=== PATIENT | male | born 1930 | race Caucasian/White ===

== ENCOUNTER 2017-02-14 12:20 | Observation (INO) | payer MEDICARE, OTHER ==
[~2017-02-14] VITALS: Ht 172.7 cm; Wt 81.1 kg
[~2017-02-14 12:20] MED LIST: ASPIRIN 32325 MG/TAB PO; ASPIRIN E.C. 8181 MG PO; CLOPIDOGREL; GENTEAL 0.25%-025 ML OP; LIPITOR 10MG10 MG PO; OPTIVE 0.5%-0.915 ML OP; PLAVIX 75MG TAB75 MG PO; PRILOSEC 20MG20 MG PO; PROTONIX20 MG PO; [UNRECOGNIZED DRUG - REMARK] PO
[2017-02-14 12:48] LABS: BASO % 0.5 % (0.0-2.0); EOS # 0.5 (0.0-0.7); EOS % 6.8 % (0-4.0); GRAN % 63.7 % (42.2-75.2); HEMATOCRIT 47.7 % (42.0-52.0); HEMOGLOBIN 16.1 g/dl (13.5-18.0); LYMPH # 1.5 (1.2-3.4); LYMPH % 19.2 % (20.0-51.0); MEAN CELL VOLUME 105 fl (80.0-100.0); MEAN CORPUSCULAR HEMOGLOBIN 35 pg (27.0-31.0); MEAN CORPUSCULAR HGB CONC 34 g/dl (33.0-37.0); MEAN PLATELET VOLUME 8.8 fl (7.4-10.4); MONO # 0.7 (0.1-0.6); MONO % 9.5 % (1.7-9.3); PLATELET COUNT 178 K/mm3 (130-400); RED BLOOD COUNT 4.55 M/mm3 (4.20-5.60); REDCELL DISTRIBUTION WIDTH-CV 12.7 % (11.5-14.5); WHITE BLOOD COUNT 7.8 K/mm3 (4.8-10.8)
[2017-02-14 12:50] LABS: INR 1.1 (0.8-3.0)
[2017-02-14 13:12] LABS: ADJUSTED CALCIUM 9.1 mg/dL (8.4-10.2); ALBUMIN 4.3 gm/dL (3.5-5.0); CALCIUM 9.3 mg/dL (8.4-10.2); CREATININE, serum 0.88 mg/dL (0.66-1.25); POTASSIUM 4.2 mmol/L (3.4-5.0); TOTAL PROTEIN 7.3 gm/dL (6.4-8.2)
[2017-02-14 14:36] LABS: PH 7 (5-8); SQUAMOUS EPITHELIAL None Seen /hpf; URINE APPEARANCE Hazy; URINE BACTERIA None Seen /hpf; URINE BILIRUBIN Negative (NEGATIVE); URINE BLOOD Negative (NEGATIVE); URINE COLOR Yellow; URINE GLUCOSE Negative (NEGATIVE); URINE KETONE Negative (NEGATIVE); URINE RBC 0-2 /hpf; URINE UROBILINOGEN Negative (NEGATIVE); URINE WBC 0-2 /hpf
[2017-02-14] MEDS ORDERED: EYE DROP TEARS15 ML OP (15:15)
[2017-02-14 15:32] VITALS: BP 164/60; PULSE 58; TEMP 97.9
[2017-02-14 15:33] VITALS: BP 164/60; PULSE 58; TEMP 97.9
[2017-02-14] MEDS ORDERED: FOLIC ACID0.4 MG PO (16:00)
[2017-02-14] MEDS ORDERED: B-121000 MCG PO (16:01)
[2017-02-14 19:46] VITALS: BP 157/98; PULSE 64; TEMP 98.7
[2017-02-14 23:59] VITALS: BP 158/60; PULSE 62; TEMP 97.4
[2017-02-15 03:08] VITALS: BP 133/50; PULSE 57; TEMP 98.4
[2017-02-15 06:43] LABS: BASO % 0.4 % (0.0-2.0); EOS # 0.7 (0.0-0.7); EOS % 9.6 % (0-4.0); GRAN # 4.2 (1.4-6.5); GRAN % 59.4 % (42.2-75.2); HEMATOCRIT 42.9 % (42.0-52.0); HEMOGLOBIN 14.9 g/dl (13.5-18.0); LYMPH # 1.5 (1.2-3.4); LYMPH % 20.7 % (20.0-51.0); MEAN CELL VOLUME 104 fl (80.0-100.0); MEAN CORPUSCULAR HEMOGLOBIN 36 pg (27.0-31.0); MEAN CORPUSCULAR HGB CONC 35 g/dl (33.0-37.0); MEAN PLATELET VOLUME 8.6 fl (7.4-10.4); MONO # 0.7 (0.1-0.6); MONO % 9.6 % (1.7-9.3); PLATELET COUNT 157 K/mm3 (130-400); RED BLOOD COUNT 4.13 M/mm3 (4.20-5.60); REDCELL DISTRIBUTION WIDTH-CV 12.5 % (11.5-14.5)
[2017-02-15 06:59] LABS: CALCIUM 8.7 mg/dL (8.4-10.2); CREATININE, serum 0.79 mg/dL (0.66-1.25); POTASSIUM 4.1 mmol/L (3.4-5.0)
[2017-02-15 07:08] LABS: MAGNESIUM 2.2 mg/dL (1.6-2.3)
[2017-02-15 07:41] LABS: THYROID STIMULATING HORMONE 3.27 uIU/mL (0.465-4.680)
[2017-02-15 08:11] VITALS: BP 121/88; PULSE 56; TEMP 97.8
[2017-02-15] MEDS ORDERED: MULTI VITAMINS1 TAB PO (11:12)
[2017-02-15 14:29] LABS: ALBUMIN FRACTION 3.4 g/dL (2.6-4.5); ALBUMIN PERCENTAGE 61.1 % (48.7-61.8); ALPHA 1 FRACTION 0.3 g/dL (0.3-0.5); ALPHA 1 PERCENTAGE 4.6 % (3.4-8.3); ALPHA 2 FRACTION 0.7 g/dL (0.6-1.2); ALPHA 2 PERCENTAGE 12.5 % (8.4-17.5); BETA 1 FRACTION 0.3 g/dL (0.4-0.6); BETA 1 PERCENTAGE 5.5 % (5.4-8.9); BETA 2 FRACTION 0.2 g/dL (0.2-0.5); BETA 2 PERCENTAGE 4.3 % (3.8-7.7); GAMMA FRACTION 0.7 g/dL (0.4-1.7); SERUM PROTEIN TOTAL 5.6 g/dL (6.0-7.6)
== END 2017-02-15 16:53 | disposition home or self-care (01) ==
LOC: COL.ER 12:20 → MEDICAL 14:52
PROVIDERS: Nurse Practitioner; Physician Assistant; Psychiatry & Neurology Neurology
DX: G45.9 Transient cerebral ischemic attack, unspecified (principal); Z86.73 Personal history of transient ischemic attack (TIA), and cerebral infarction without residual deficits; G62.9 Polyneuropathy, unspecified; K21.9 Gastro-esophageal reflux disease without esophagitis; Z85.828 Personal history of other malignant neoplasm of skin; Z96.641 Presence of right artificial hip joint; Z87.891 Personal history of nicotine dependence
CPT/HCPCS: A9585; G0378; G8978-GP; G8979-GP; G8987-GO; G8988-GO; G8999-GN; G9186-GN; J1650

== ENCOUNTER → 2017-03-17 | Outpatient (CLI) | payer MEDICARE, OTHER ==
[~2017-03-17] MED LIST changes: +B-121000 MCG PO; +EYE DROP TEARS15 ML OP; +FOLIC ACID0.4 MG PO; +MULTI VITAMINS1 TAB PO; +NORCO 325 MG-51 TAB PO; +[UNRECOGNIZED DRUG - OTHER] OP
== END ==
LOC: COL.RAD 07:40
DX: Z01.812 Encounter for preprocedural laboratory examination (principal); I65.23 Occlusion and stenosis of bilateral carotid arteries; M47.812 Spondylosis without myelopathy or radiculopathy, cervical region; M48.02 Spinal stenosis, cervical region
CPT/HCPCS: Q9967

== ENCOUNTER 2017-04-15 08:30 | Emergency (ER) | payer MEDICARE, OTHER ==
[~2017-04-15] VITALS: Ht 172.7 cm; Wt 79.5 kg
[~2017-04-15 08:30] MED LIST changes: -NORCO 325 MG-51 TAB PO; -[UNRECOGNIZED DRUG - OTHER] OP
[2017-04-15 08:35] VITALS: TEMP 98.1
[2017-04-15 09:21] LABS: BASO % 0.3 % (0.0-2.0); EOS # 0.1 (0.0-0.7); EOS % 0.7 % (0-4.0); GRAN % 79.9 % (42.2-75.2); HEMATOCRIT 38.3 % (42.0-52.0); LYMPH % 8.7 % (20.0-51.0); MEAN CELL VOLUME 104 fl (80.0-100.0); MEAN CORPUSCULAR HEMOGLOBIN 35 pg (27.0-31.0); MEAN CORPUSCULAR HGB CONC 34 g/dl (33.0-37.0); MEAN PLATELET VOLUME 9.3 fl (7.4-10.4); MONO # 1.1 (0.1-0.6); MONO % 9.9 % (1.7-9.3); PLATELET COUNT 153 K/mm3 (130-400); RED BLOOD COUNT 3.67 M/mm3 (4.20-5.60); REDCELL DISTRIBUTION WIDTH-CV 13.2 % (11.5-14.5); WHITE BLOOD COUNT 11.3 K/mm3 (4.8-10.8)
[2017-04-15 09:31] LABS: INR 1.2 (0.8-3.0); PROTHROMBIN TIME 13.4 SECONDS (9.7-12.8)
[2017-04-15 09:35] LABS: ADJUSTED CALCIUM 9.1 mg/dL (8.4-10.2); ALANINE AMINOTRANSFERASE 29 U/L (21-72); ALBUMIN 3.5 gm/dL (3.5-5.0); ALKALINE PHOSPHATASE 41 U/L (50-136); ANION GAP 7 mmol/L (7-16); BILIRUBIN,TOTAL 1.4 mg/dL (0.0-1.0); BLOOD UREA NITROGEN 19 mg/dL (9-20); CALCIUM 8.7 mg/dL (8.4-10.2); CARBON DIOXIDE 26 mmol/L (22-30); CHLORIDE 103 mmol/L (98-107); CREATININE, serum 0.85 mg/dL (0.66-1.25); GLUCOSE 93 mg/dL (74-106); POTASSIUM 3.9 mmol/L (3.4-5.0); SODIUM 136 mmol/L (137-145); TOTAL PROTEIN 6.1 gm/dL (6.4-8.2)
[2017-04-15 09:39] LABS: PARTIAL THROMBOPLASTIN TIME 31.1 SECONDS (26.0-37.0)
[2017-04-15 09:44] LABS: B-TYPE NATRIURETIC PEPTIDE 1000 pg/mL (0-450)
[2017-04-15 09:49] LABS: TROPONIN-I < 0.012 ng/mL (0.000-0.034)
[2017-04-15 10:03] LABS: C-REACTIVE PROTEIN 13.1 mg/dL (0.0-0.9)
[2017-04-15] MEDS ORDERED: NORCO 325 MG-51 TAB PO (10:13)
[2017-04-15 11:27] VITALS: BP 117/51; PULSE 61
== END 2017-04-15 11:27 | disposition home or self-care (01) ==
LOC: COL.ER 08:30
PROVIDERS: Emergency Medicine
DX: T81.718A Complication of other artery following a procedure, not elsewhere classified, initial encounter (principal); Z79.82 Long term (current) use of aspirin; Z86.73 Personal history of transient ischemic attack (TIA), and cerebral infarction without residual deficits; Z85.46 Personal history of malignant neoplasm of prostate; Z85.828 Personal history of other malignant neoplasm of skin
CPT/HCPCS: J1100

== ENCOUNTER 2017-04-28 12:41 | Emergency (ER) | payer MEDICARE, OTHER ==
[~2017-04-28] VITALS: Ht 172.7 cm; Wt 79.5 kg
[~2017-04-28 12:41] MED LIST changes: +NORCO 325 MG-51 TAB PO
[2017-04-28 12:53] VITALS: TEMP 97.5
[2017-04-28 13:10] LABS: BASO % 0.3 % (0.0-2.0); EOS # 0.5 (0.0-0.7); GRAN # 6.7 (1.4-6.5); HEMOGLOBIN 14.6 g/dl (13.5-18.0); LYMPH # 1.5 (1.2-3.4); LYMPH % 15.4 % (20.0-51.0); MEAN CELL VOLUME 102 fl (80.0-100.0); MEAN CORPUSCULAR HEMOGLOBIN 36 pg (27.0-31.0); MEAN CORPUSCULAR HGB CONC 35 g/dl (33.0-37.0); MEAN PLATELET VOLUME 8.4 fl (7.4-10.4); MONO % 9.9 % (1.7-9.3); PLATELET COUNT 214 K/mm3 (130-400); REDCELL DISTRIBUTION WIDTH-CV 12.5 % (11.5-14.5); WHITE BLOOD COUNT 9.8 K/mm3 (4.8-10.8)
[2017-04-28] MEDS ORDERED: ASPIRIN 32325 MG/TAB PO (13:18)
[2017-04-28 13:19] LABS: INR 1.1 (0.8-3.0); PROTHROMBIN TIME 12.3 SECONDS (9.7-12.8)
[2017-04-28] MEDS ORDERED: [UNRECOGNIZED DRUG - OTHER] OP (13:20)
[2017-04-28 13:22] LABS: PARTIAL THROMBOPLASTIN TIME 31.5 SECONDS (26.0-37.0)
[2017-04-28 13:29] LABS: ADJUSTED CALCIUM 9.2 mg/dL (8.4-10.2); ALANINE AMINOTRANSFERASE 24 U/L (21-72); ALBUMIN 3.8 gm/dL (3.5-5.0); ALKALINE PHOSPHATASE 53 U/L (50-136); ANION GAP 6 mmol/L (7-16); BLOOD UREA NITROGEN 13 mg/dL (9-20); CARBON DIOXIDE 23 mmol/L (22-30); CHLORIDE 102 mmol/L (98-107); CREATININE, serum 0.85 mg/dL (0.66-1.25); GLUCOSE 89 mg/dL (74-106); POTASSIUM 4.3 mmol/L (3.4-5.0); SODIUM 131 mmol/L (137-145); TOTAL PROTEIN 6.5 gm/dL (6.4-8.2)
[2017-04-28 13:40] LABS: TROPONIN-I < 0.012 ng/mL (0.000-0.034)
[2017-04-28 15:02] VITALS: BP 173/93; PULSE 65
== END 2017-04-28 15:12 | disposition short-term general hospital (02) ==
LOC: COL.ER 12:41
PROVIDERS: Emergency Medicine
DX: G45.9 Transient cerebral ischemic attack, unspecified (principal); Z79.02 Long term (current) use of antithrombotics/antiplatelets; K21.9 Gastro-esophageal reflux disease without esophagitis

== ENCOUNTER 2017-05-03 22:26 | Emergency (ER) | payer MEDICARE, OTHER ==
[~2017-05-03] VITALS: Ht 172.7 cm; Wt 72.7 kg
[~2017-05-03 22:26] MED LIST changes: +[UNRECOGNIZED DRUG - OTHER] OP
[2017-05-03 22:29] VITALS: TEMP 97
[2017-05-03 23:24] VITALS: BP 167/80; PULSE 90
== END 2017-05-03 23:26 | disposition home or self-care (01) ==
LOC: COL.ER 22:26
DX: S27.818A Other injury of esophagus (thoracic part), initial encounter (principal); R09.89 Other specified symptoms and signs involving the circulatory and respiratory systems; I25.10 Atherosclerotic heart disease of native coronary artery without angina pectoris; X58.XXXA Exposure to other specified factors, initial encounter

== ENCOUNTER 2017-09-28 01:20 | Observation (INO) | payer MEDICARE, OTHER ==
[~2017-09-28] VITALS: Ht 175.3 cm; Wt 78.0 kg
[2017-09-28] MEDS ORDERED: LIPITOR 10MG10 MG PO (01:35)
[2017-09-28] MEDS ORDERED: LIPITOR 80MG80 MG PO (01:35)
[2017-09-28 01:37] LABS: BASO # 0.1 (0.0-0.2); BASO % 0.5 % (0.0-2.0); EOS # 0.7 (0.0-0.7); EOS % 7.8 % (0-4.0); GRAN # 5.7 (1.4-6.5); GRAN % 62.9 % (42.2-75.2); HEMATOCRIT 43.9 % (42.0-52.0); LYMPH # 1.7 (1.2-3.4); LYMPH % 18.7 % (20.0-51.0); MEAN CELL VOLUME 102 fl (80.0-100.0); MEAN CORPUSCULAR HEMOGLOBIN 35 pg (27.0-31.0); MEAN CORPUSCULAR HGB CONC 34 g/dl (33.0-37.0); MONO # 0.9 (0.1-0.6); MONO % 9.6 % (1.7-9.3); PLATELET COUNT 187 K/mm3 (130-400); RED BLOOD COUNT 4.29 M/mm3 (4.20-5.60); REDCELL DISTRIBUTION WIDTH-CV 12.4 % (11.5-14.5)
[2017-09-28 01:43] LABS: INR 1.1 (0.8-3.0); PROTHROMBIN TIME 12.3 SECONDS (9.7-12.8)
[2017-09-28 01:46] LABS: ALBUMIN 4.1 gm/dL (3.5-5.0); BILIRUBIN,TOTAL 0.6 mg/dL (0.0-1.0); CALCIUM 9.5 mg/dL (8.4-10.2); CREATININE, serum 0.88 mg/dL (0.66-1.25); PARTIAL THROMBOPLASTIN TIME 32.1 SECONDS (26.0-37.0); TOTAL PROTEIN 6.9 gm/dL (6.4-8.2)
[2017-09-28 02:53] LABS: COLLECTION METHOD CLEAN CATCH
[2017-09-28 02:58] LABS: PH 7 (5-8); SQUAMOUS EPITHELIAL None Seen /hpf; URINE APPEARANCE Clear; URINE BACTERIA None Seen /hpf; URINE BILIRUBIN Negative (NEGATIVE); URINE BLOOD Negative (NEGATIVE); URINE COLOR Yellow; URINE GLUCOSE Negative (NEGATIVE); URINE KETONE Negative (NEGATIVE); URINE LEUKOCYTE ESTERASE Negative (NEGATIVE); URINE NITRATE Negative (NEGATIVE); URINE PROTEIN(semi-quant) Negative (NEGATIVE); URINE RBC 0-2 /hpf; URINE UROBILINOGEN Negative (NEGATIVE)
[2017-09-28 03:43] VITALS: BP 187/75; PULSE 83; TEMP 99.7
[2017-09-28 06:16] LABS: BASO % 0.4 % (0.0-2.0); EOS # 0.1 (0.0-0.7); EOS % 0.5 % (0-4.0); GRAN # 9.3 (1.4-6.5); HEMATOCRIT 41.1 % (42.0-52.0); HEMOGLOBIN 14.2 g/dl (13.5-18.0); LYMPH # 0.8 (1.2-3.4); LYMPH % 7.3 % (20.0-51.0); MEAN CELL VOLUME 102 fl (80.0-100.0); MEAN CORPUSCULAR HEMOGLOBIN 35 pg (27.0-31.0); MEAN CORPUSCULAR HGB CONC 35 g/dl (33.0-37.0); MONO # 0.7 (0.1-0.6); MONO % 5.9 % (1.7-9.3); PLATELET COUNT 195 K/mm3 (130-400); RED BLOOD COUNT 4.03 M/mm3 (4.20-5.60); REDCELL DISTRIBUTION WIDTH-CV 12.2 % (11.5-14.5)
[2017-09-28 06:31] LABS: ALBUMIN 4.1 gm/dL (3.5-5.0); BILIRUBIN,TOTAL 0.7 mg/dL (0.0-1.0); CALCIUM 9.4 mg/dL (8.4-10.2); CREATININE, serum 0.8 mg/dL (0.66-1.25); POTASSIUM 3.9 mmol/L (3.4-5.0); TOTAL PROTEIN 6.8 gm/dL (6.4-8.2)
[2017-09-28 07:30] VITALS: BP 164/70; PULSE 80
[2017-09-28 09:30] VITALS: BP 180/63; PULSE 77; TEMP 98.3
[2017-09-28 14:29] VITALS: BP 155/59; PULSE 67; TEMP 98.1
[2017-09-28 21:19] VITALS: BP 155/55; PULSE 62; TEMP 98.1
[2017-09-29] VITALS: BP 122/61; PULSE 55; TEMP 97.4
[2017-09-29 05:11] VITALS: BP 133/63; PULSE 60; TEMP 98.1
[2017-09-29 06:35] LABS: BASO % 0.3 % (0.0-2.0); EOS # 0.4 (0.0-0.7); EOS % 5.1 % (0-4.0); GRAN # 5.2 (1.4-6.5); GRAN % 59.8 % (42.2-75.2); HEMATOCRIT 40.2 % (42.0-52.0); HEMOGLOBIN 13.8 g/dl (13.5-18.0); LYMPH % 23.3 % (20.0-51.0); MEAN CELL VOLUME 103 fl (80.0-100.0); MEAN CORPUSCULAR HEMOGLOBIN 35 pg (27.0-31.0); MEAN CORPUSCULAR HGB CONC 34 g/dl (33.0-37.0); MEAN PLATELET VOLUME 8.8 fl (7.4-10.4); MONO % 10.9 % (1.7-9.3); PLATELET COUNT 181 K/mm3 (130-400); RED BLOOD COUNT 3.92 M/mm3 (4.20-5.60); REDCELL DISTRIBUTION WIDTH-CV 12.5 % (11.5-14.5)
[2017-09-29 06:51] LABS: CALCIUM 8.9 mg/dL (8.4-10.2); CHOLESTEROL RISK RATIO 2.6; CREATININE, serum 0.85 mg/dL (0.66-1.25); POTASSIUM 3.9 mmol/L (3.4-5.0)
[2017-09-29 08:30] VITALS: BP 147/72; PULSE 65; TEMP 97.3
[2017-09-29 12:23] VITALS: BP 131/58; PULSE 57; TEMP 97.3
[2017-09-29 17:03] VITALS: BP 139/72; PULSE 61; TEMP 97.7
[2017-09-29 19:45] VITALS: BP 131/61; PULSE 68; TEMP 97.5
[2017-09-30 00:05] VITALS: BP 168/52; PULSE 58; TEMP 98.3
[2017-09-30 02:45] VITALS: BP 140/52; PULSE 54; TEMP 98.7
[2017-09-30 07:50] LABS: BASO # 0.1 (0.0-0.2); BASO % 0.7 % (0.0-2.0); EOS # 0.6 (0.0-0.7); EOS % 7.3 % (0-4.0); GRAN # 5.2 (1.4-6.5); GRAN % 58.3 % (42.2-75.2); HEMATOCRIT 41.3 % (42.0-52.0); HEMOGLOBIN 13.9 g/dl (13.5-18.0); LYMPH # 1.9 (1.2-3.4); LYMPH % 21.2 % (20.0-51.0); MEAN CELL VOLUME 104 fl (80.0-100.0); MEAN CORPUSCULAR HEMOGLOBIN 35 pg (27.0-31.0); MEAN CORPUSCULAR HGB CONC 34 g/dl (33.0-37.0); MEAN PLATELET VOLUME 9.2 fl (7.4-10.4); MONO % 11.6 % (1.7-9.3); PLATELET COUNT 195 K/mm3 (130-400); RED BLOOD COUNT 3.98 M/mm3 (4.20-5.60); REDCELL DISTRIBUTION WIDTH-CV 12.3 % (11.5-14.5)
[2017-09-30 08:06] LABS: CALCIUM 9.1 mg/dL (8.4-10.2); CREATININE, serum 0.85 mg/dL (0.66-1.25); POTASSIUM 3.8 mmol/L (3.4-5.0)
[2017-09-30 08:21] VITALS: BP 131/57; PULSE 54; TEMP 97.8
[2017-09-30 12:55] VITALS: BP 116/61; PULSE 55; TEMP 98.4
== END 2017-09-30 13:44 | disposition home or self-care (01) ==
LOC: COL.ER 01:20 → SURG 02:56 → MEDICAL 18:30
PROVIDERS: Emergency Medicine; Internal Medicine; Nurse Practitioner Family; Physician Assistant
DX: G45.9 Transient cerebral ischemic attack, unspecified (principal); I10 Essential (primary) hypertension; M19.90 Unspecified osteoarthritis, unspecified site; Z96.641 Presence of right artificial hip joint; Z79.01 Long term (current) use of anticoagulants; Z85.46 Personal history of malignant neoplasm of prostate; Z82.49 Family history of ischemic heart disease and other diseases of the circulatory system; Z82.61 Family history of arthritis
CPT/HCPCS: 99231-AI; 99232-AI; 99239; A9585; G0378; G8978-GP; G8979-GP; G8987-GO; G8988-GO; J2270; J2405

== ENCOUNTER 2018-01-26 12:22 | Emergency (ER) | payer MEDICARE, OTHER ==
[~2018-01-26] VITALS: Ht 172.7 cm; Wt 70.5 kg
[~2018-01-26 12:22] MED LIST changes: +LIPITOR 80MG80 MG PO
[2018-01-26 12:25] VITALS: TEMP 97.2
[2018-01-26 12:58] LABS: BASO % 0.4 % (0.0-2.0); EOS # 0.4 (0.0-0.7); EOS % 4.8 % (0-4.0); GRAN # 5.1 (1.4-6.5); GRAN % 67.9 % (42.2-75.2); HEMATOCRIT 41.8 % (42.0-52.0); HEMOGLOBIN 14.3 g/dl (13.5-18.0); LYMPH # 1.3 (1.2-3.4); LYMPH % 16.8 % (20.0-51.0); MEAN CELL VOLUME 102 fl (80.0-100.0); MEAN CORPUSCULAR HEMOGLOBIN 35 pg (27.0-31.0); MEAN CORPUSCULAR HGB CONC 34 g/dl (33.0-37.0); MEAN PLATELET VOLUME 8.6 fl (7.4-10.4); MONO # 0.7 (0.1-0.6); MONO % 9.7 % (1.7-9.3); PLATELET COUNT 194 K/mm3 (130-400); RED BLOOD COUNT 4.11 M/mm3 (4.20-5.60); REDCELL DISTRIBUTION WIDTH-CV 12.9 % (11.5-14.5)
[2018-01-26 13:12] LABS: ALANINE AMINOTRANSFERASE 29 U/L (21-72); ALBUMIN 3.6 gm/dL (3.5-5.0); ALKALINE PHOSPHATASE 60 U/L (50-136); ANION GAP 10 mmol/L (7-16); AST,SGOT 25 U/L (15-37); BILIRUBIN,TOTAL 0.6 mg/dL (0.0-1.0); BLOOD UREA NITROGEN 13 mg/dL (9-20); CARBON DIOXIDE 27 mmol/L (22-30); CHLORIDE 101 mmol/L (98-107); CREATININE, serum 0.82 mg/dL (0.66-1.25); GLUCOSE 99 mg/dL (74-106); POTASSIUM 4.5 mmol/L (3.4-5.0); SODIUM 138 mmol/L (137-145); TOTAL PROTEIN 6.8 gm/dL (6.4-8.2)
[2018-01-26 13:18] LABS: C-REACTIVE PROTEIN < 0.5 mg/dL (0.0-0.9)
[2018-01-26 14:08] VITALS: BP 140/77; PULSE 62
== END 2018-01-26 14:07 | disposition short-term general hospital (02) ==
LOC: COL.ER 12:22
PROVIDERS: Family Medicine
DX: G45.9 Transient cerebral ischemic attack, unspecified (principal); Z79.82 Long term (current) use of aspirin; Z79.02 Long term (current) use of antithrombotics/antiplatelets

== ENCOUNTER 2018-03-15 10:14 | Emergency (ER) | payer MEDICARE, OTHER ==
[~2018-03-15] VITALS: Ht 172.7 cm; Wt 72.7 kg
[2018-03-15 10:17] VITALS: TEMP 97.2
[2018-03-15 10:38] LABS: BASO # 0.1 (0.0-0.2); BASO % 0.9 % (0.0-2.0); EOS # 0.5 (0.0-0.7); GRAN # 4.3 (1.4-6.5); GRAN % 64.2 % (42.2-75.2); HEMATOCRIT 42.6 % (42.0-52.0); HEMOGLOBIN 14.7 g/dl (13.5-18.0); LYMPH # 1.2 (1.2-3.4); LYMPH % 17.4 % (20.0-51.0); MEAN CELL VOLUME 100 fl (80.0-100.0); MEAN CORPUSCULAR HEMOGLOBIN 35 pg (27.0-31.0); MEAN CORPUSCULAR HGB CONC 35 g/dl (33.0-37.0); MEAN PLATELET VOLUME 8.4 fl (7.4-10.4); MONO # 0.6 (0.1-0.6); PLATELET COUNT 192 K/mm3 (130-400); RED BLOOD COUNT 4.26 M/mm3 (4.20-5.60); REDCELL DISTRIBUTION WIDTH-CV 12.8 % (11.5-14.5)
[2018-03-15 10:41] LABS: INR 1.1 (0.8-3.0); PROTHROMBIN TIME 12.2 SECONDS (9.7-12.8)
[2018-03-15 10:44] LABS: PARTIAL THROMBOPLASTIN TIME 31.7 SECONDS (26.0-37.0)
[2018-03-15 10:45] LABS: ALANINE AMINOTRANSFERASE 28 U/L (21-72); ALBUMIN 3.7 gm/dL (3.5-5.0); ALKALINE PHOSPHATASE 62 U/L (50-136); ANION GAP 9 mmol/L (7-16); AST,SGOT 20 U/L (15-37); BILIRUBIN,TOTAL 0.6 mg/dL (0.0-1.0); BLOOD UREA NITROGEN 10 mg/dL (9-20); CALCIUM 8.9 mg/dL (8.4-10.2); CARBON DIOXIDE 25 mmol/L (22-30); CHLORIDE 96 mmol/L (98-107); CREATININE, serum 0.92 mg/dL (0.66-1.25); GLUCOSE 121 mg/dL (74-106); LIPASE 50 U/L (23-300); POTASSIUM 4.2 mmol/L (3.4-5.0); SODIUM 130 mmol/L (137-145); TOTAL PROTEIN 6.7 gm/dL (6.4-8.2)
[2018-03-15 10:59] LABS: TROPONIN-I < 0.012 ng/mL (0.000-0.034)
[2018-03-15] MEDS ORDERED: ASPIRIN 81M81 MG/TA2 PO (11:01)
[2018-03-15 11:02] LABS: PROLACTIN 52.3 ng/mL (3.7-17.9)
[2018-03-15] MEDS ORDERED: KEPPRA250 MG PO (11:03)
[2018-03-15] MEDS ORDERED: LIPITOR 10MG10 MG PO (11:03)
[2018-03-15] MEDS ORDERED: KEPPRA 500MG500 MG PO (11:03)
[2018-03-15] MEDS ORDERED: TRILEPTAL 150M150 MG PO (11:03)
[2018-03-15] MEDS ORDERED: ZONEGRAN25 MG PO (11:04)
[2018-03-15 12:58] VITALS: BP 133/60; PULSE 59
== END 2018-03-15 13:08 | disposition other institution (70) ==
LOC: COL.ER 10:14
PROVIDERS: Emergency Medicine
DX: E87.1 Hypo-osmolality and hyponatremia (principal); R55 Syncope and collapse; I10 Essential (primary) hypertension; Z86.73 Personal history of transient ischemic attack (TIA), and cerebral infarction without residual deficits; Z90.89 Acquired absence of other organs
CPT/HCPCS: J7040

== ENCOUNTER 2018-11-17 18:14 | Inpatient (IN) | payer MEDICARE ==
[~2018-11-17] VITALS: Ht 172.7 cm; Wt 75.8 kg
[~2018-11-17 18:14] MED LIST changes: +ASPIRIN 81M81 MG/TA2 PO; +KEPPRA 500MG500 MG PO; +KEPPRA250 MG PO; +TRILEPTAL 150M150 MG PO; +ZONEGRAN25 MG PO
[2018-11-17 19:07] LABS: BASO % 0.2 % (0.0-2.0); GRAN # 4.6 (1.4-6.5); GRAN % 78.6 % (42.2-75.2); HEMATOCRIT 41.8 % (42.0-52.0); HEMOGLOBIN 14.3 g/dl (13.5-18.0); LYMPH # 0.4 (1.2-3.4); LYMPH % 6.4 % (20.0-51.0); MEAN CELL VOLUME 103 fl (80.0-100.0); MEAN CORPUSCULAR HEMOGLOBIN 35 pg (27.0-31.0); MEAN CORPUSCULAR HGB CONC 34 g/dl (33.0-37.0); MEAN PLATELET VOLUME 8.8 fl (7.4-10.4); MONO # 0.9 (0.1-0.6); MONO % 14.6 % (1.7-9.3); PLATELET COUNT 151 K/mm3 (130-400); RED BLOOD COUNT 4.08 M/mm3 (4.20-5.60); REDCELL DISTRIBUTION WIDTH-CV 12.8 % (11.5-14.5)
[2018-11-17 19:12] LABS: COLLECTION METHOD CLEAN CATCH
[2018-11-17 19:17] LABS: ALBUMIN 3.7 gm/dL (3.5-5.0); BILIRUBIN,TOTAL 0.4 mg/dL (0.0-1.0); C-REACTIVE PROTEIN 4.9 mg/dL (0.0-0.9); CALCIUM 8.7 mg/dL (8.4-10.2); CREATININE, serum 0.92 mg/dL (0.66-1.25); POTASSIUM 3.6 mmol/L (3.4-5.0); TOTAL PROTEIN 6.3 gm/dL (6.4-8.2)
[2018-11-17 19:17] LABS: MUCOUS Present /lpf; PH 6 (5-8); SQUAMOUS EPITHELIAL None Seen /hpf; URINE APPEARANCE Hazy; URINE BACTERIA None Seen /hpf; URINE BILIRUBIN Negative (NEGATIVE); URINE BLOOD Negative (NEGATIVE); URINE COLOR Yellow; URINE GLUCOSE Negative (NEGATIVE); URINE KETONE Negative (NEGATIVE); URINE LEUKOCYTE ESTERASE Negative (NEGATIVE); URINE NITRATE Negative (NEGATIVE); URINE PROTEIN(semi-quant) Negative (NEGATIVE); URINE RBC 0-2 /hpf; URINE UROBILINOGEN Negative (NEGATIVE)
[2018-11-17] MEDS ORDERED: PLAVIX 75MG TAB75 MG PO (20:18)
[2018-11-17] MEDS ORDERED: PROTONIX20 MG PO (20:18)
[2018-11-17] MEDS ORDERED: LIPITOR 40MG TA40 MG PO (20:19)
[2018-11-17] MEDS ORDERED: ONCE DAILY1 TA1 PO (20:19)
[2018-11-17] MEDS ORDERED: ZONEGRAN50 MG PO ×2 (20:20→22:02)
[2018-11-17 21:37] VITALS: BP 131/58; PULSE 61; TEMP 97.3
--- NOTE | 2018-11-17 22:30 | NUR ---
Admitted to medical floor from ER with weakness, Influenza A- on DRoplet Precautions- oriented , speech slow - follows commands. Wants to just go to sleep- IV fluids at 125cc/hr to L/AC IV site,, did eat some pudding as a snack tonight- on potassium protocol so getting po replacement- recheck in the AM, also getting serial troponins tonight- pt denies pain except for some left hip pain with activity
[2018-11-18 00:30] VITALS: BP 159/65; PULSE 68; TEMP 97.4
[2018-11-18 04:00] VITALS: BP 139/62; PULSE 61; TEMP 97.4
--- NOTE | 2018-11-18 05:30 | NUR ---
Did sleep well for the past 4-5 hours-when awakened, will fall right back to sleep- stayed the night in the room, Pt did stand at bedside with 2 assists to void per urinal- is weak. Fernanda JIMENEZ was called with troponin results duing the night-trending down. Seizure precautions in place- on Droplet Isolation
[2018-11-18 07:43] LABS: BASO % 0.5 % (0.0-2.0); EOS # 0.1 (0.0-0.7); EOS % 1.2 % (0-4.0); GRAN # 2.6 (1.4-6.5); GRAN % 61.6 % (42.2-75.2); LYMPH # 0.9 (1.2-3.4); LYMPH % 21.1 % (20.0-51.0); MEAN CELL VOLUME 103 fl (80.0-100.0); MEAN CORPUSCULAR HGB CONC 34 g/dl (33.0-37.0); MEAN PLATELET VOLUME 8.9 fl (7.4-10.4); MONO # 0.6 (0.1-0.6); MONO % 15.1 % (1.7-9.3); PLATELET COUNT 126 K/mm3 (130-400); RED BLOOD COUNT 3.53 M/mm3 (4.20-5.60); REDCELL DISTRIBUTION WIDTH-CV 12.9 % (11.5-14.5)
[2018-11-18 07:51] LABS: HEMATOCRIT 36.2 % (42.0-52.0); HEMOGLOBIN 12.3 g/dl (13.5-18.0); MEAN CORPUSCULAR HEMOGLOBIN 35 pg (27.0-31.0)
[2018-11-18 07:59] LABS: CALCIUM 7.9 mg/dL (8.4-10.2); CREATININE, serum 0.73 mg/dL (0.66-1.25); POTASSIUM 3.8 mmol/L (3.4-5.0)
[2018-11-18 08:20] VITALS: BP 111/54; PULSE 57; TEMP 97.9
--- NOTE | 2018-11-18 09:50 | NUR ---
Patient alert and oriented, answers questions appropriately. See assessment. Lungs decreased in bases. No s/s respiratory distress noted. No c/o lethargy, c/o weakness. No other c/o at this time.
[2018-11-18 11:53] VITALS: BP 121/47; PULSE 62; TEMP 97.7
--- NOTE | 2018-11-18 14:57 | NUR ---
Patient lives at home with his (Edith) in [place], [place] and plans to return home upon recovery. Patient is mostly independent with daily living activities and receives help from family members as needed. Patient uses a walker for mobility assistance, his primary care physician is Dr. Sujit Sawyer, his [facility] is [facility], and he does have advance directives completed. No further needs at this time and social servies will follow as needed.
[2018-11-18 17:47] VITALS: BP 122/49; PULSE 58; TEMP 97.9
[2018-11-18 19:42] VITALS: BP 122/47; PULSE 62; TEMP 97.9
--- NOTE | 2018-11-18 22:00 | NUR ---
Initial assessment completed- pt denies pain at this time- resting comfortable- in room with pt. SEizure precautions in place. Tele on. IV fluids of NS at 125cc/hr .Droplet Isolation. NPO after MN for Renae
[2018-11-19] VITALS (9 sets, daily range): BP systolic 95–148; BP diastolic 45–63; PULSE 57–74; TEMP 97.3–97.5
--- NOTE | 2018-11-19 05:36 | NUR ---
Quiet night- slept most of the night,,did stand at bedside with assist to void during the night- NPO for Rodan
[2018-11-19 06:02] LABS: BASO % 0.2 % (0.0-2.0); EOS # 0.1 (0.0-0.7); EOS % 1.8 % (0-4.0); GRAN # 4.1 (1.4-6.5); GRAN % 72.2 % (42.2-75.2); HEMOGLOBIN 11.8 g/dl (13.5-18.0); LYMPH # 0.9 (1.2-3.4); LYMPH % 16.7 % (20.0-51.0); MEAN CELL VOLUME 103 fl (80.0-100.0); MEAN CORPUSCULAR HEMOGLOBIN 35 pg (27.0-31.0); MEAN CORPUSCULAR HGB CONC 34 g/dl (33.0-37.0); MEAN PLATELET VOLUME 9.2 fl (7.4-10.4); MONO # 0.5 (0.1-0.6); MONO % 8.9 % (1.7-9.3); PLATELET COUNT 134 K/mm3 (130-400); RED BLOOD COUNT 3.36 M/mm3 (4.20-5.60)
[2018-11-19 06:11] LABS: HEMATOCRIT 34.6 % (42.0-52.0)
[2018-11-19 06:23] LABS: CALCIUM 7.7 mg/dL (8.4-10.2); CREATININE, serum 0.71 mg/dL (0.66-1.25); MAGNESIUM 1.9 mg/dL (1.6-2.3); POTASSIUM 3.7 mmol/L (3.4-5.0)
--- NOTE | 2018-11-19 08:25 | NUR ---
Assessment completed, alert/oriented, vital signs stable, denies pain, reports still feeling very generalized weakness/ reports he is doing better than prior to admission though, no resp. difficulty noted at rest, he does have a moist but non-productive cough, lungs are CTA / dimnished in his bases, heart irregular to palpation/ hx A.fib, rate is controlled, Potassium 3.7/ replacing per protocol, he is scheduled for a Lexiscan this morning and radiology nurse said it would be around 0845, patient has been NPO other than sips with his meds this morning, present in the room, denies other needs at this time
[2018-11-19] MEDS ORDERED: TAMIFLU 75MG75 MG PO ×2 (13:11→13:34)
[2018-11-19] MEDS ORDERED: IMDUR 30MG30 MG/TAB PO (13:13)
[2018-11-19] MEDS ORDERED: TOPROL XL 25MG25 MG PO (13:14)
[2018-11-19] MEDS ORDERED: ASPIRIN 32325 MG/TAB PO (13:34)
--- NOTE | 2018-11-19 14:50 | NUR ---
Patient is dc home today. SW checked with PT who reports he is able to go home with family assist and has all of the equipment he needs. No other discharge needs at this time.
--- NOTE | 2018-11-19 15:14 | NUR ---
Discharge orders discussed with the patient and his , instructed to follow up with Cardiology and PCP as scheduled for them, discussed new medications with them, scripts for Metoprolol/ Imdur/ Tamiflu/ ASA sent to [facility] for them, IV and tele removed, leaving with his , LINE CL[employer]ER will escort them out the door
== END 2018-11-19 15:17 | disposition home or self-care (01) | DRG 193 ==
LOC: COL.ER 18:14 → MEDICAL 20:05
PROVIDERS: Emergency Medicine; Nurse Practitioner Family; ADMIT Internal Medicine
DX: J09.X2 Influenza due to identified novel influenza A virus with other respiratory manifestations (principal); I21.4 Non-ST elevation (NSTEMI) myocardial infarction; Z66 Do not resuscitate; E87.6 Hypokalemia; G40.909 Epilepsy, unspecified, not intractable, without status epilepticus; Z85.46 Personal history of malignant neoplasm of prostate; Z85.828 Personal history of other malignant neoplasm of skin; E78.5 Hyperlipidemia, unspecified; Z87.891 Personal history of nicotine dependence; Z79.01 Long term (current) use of anticoagulants; I73.9 Peripheral vascular disease, unspecified
CPT/HCPCS: OP; 99222-AI; 99239; A4216; A9500; G0378; J0696; J1650; J2405; J3480; J7030